=== PATIENT | male | born 1955 | race Caucasian/White ===

== ENCOUNTER 2016-11-07 16:39 | Inpatient (IN) | payer OTHER ==
[~2016-11-07] VITALS: Ht 177.8 cm; Wt 102.2 kg
[2016-11-07] MEDS ORDERED: SODIUM CHLORIDE 0.9% 1,000 ML IV ONE ×2 (16:50)
[2016-11-07] MEDS ORDERED: ETOMIDATE (2MG/ML) 20ML VIAL IV ONE (16:56)
[2016-11-07] MEDS ORDERED: SUCCINYLCHOLINE CHLORIDE 20 MG/ML 10ML VIAL IV ONE ×2 (16:56→17:07)
[2016-11-07] MEDS ORDERED: MIDAZOLAM DRIP 50 mg/50mL 50 ML IV ONE (16:59)
[2016-11-07] MEDS ORDERED: cefTRIAXone 1GM/50ML D5W 50 ML IV ONE (17:00)
[2016-11-07] MEDS: MIDAZOLAM DRIP 50 mg/50mL 50 ML IV SCH ×2 (17:16→23:43)
[2016-11-07] MEDS: PROPOFOL 100 ML IV SCH (17:24)
[2016-11-07] MEDS ORDERED: PROPOFOL 100 ML IV ONE (17:24)
[2016-11-07 17:31] LABS: CONDITION Y; DEFINITIVE SEE PRINTOUT; Hematocrit 47.2 % (41.0-53.0); Hemoglobin 16.5 g/dL (13.5-17.5); Mean Corpuscular Hemoglobin 34.4 pg (28.0-32.0); Mean Corpuscular Hgb Conc. 34.8 g/dL (32.0-36.0); Mean Corpuscular Volume 98.8 fL (80.0-100.0); Mean Platelet Volume 9.8 fL (7.4-10.4); SUSPECT SEE PRINTOUT
[2016-11-07 17:32] LABS: Platelet Count (auto) 212 10^3/uL (140-450)
[2016-11-07 17:37] LABS: Anion Gap 12 (5-15); BUN/Creatinine Ratio 28.5; Blood Urea Nitrogen 49 mg/dL (7-18); Calcium 9.2 mg/dL (8.5-10.1); Carbon Dioxide 19 mmol/L (21-32); Chloride 107 mmol/L (98-107); GFR African American 52 mL/min; GFR Non-African American 43 mL/min; Glucose 111 mg/dL (74-106); Potassium 3.7 mmol/L (3.5-5.1); Sodium 138 mmol/L (136-145)
[2016-11-07 17:41] LABS: INR 1.47 (0.9-1.15); Partial Thromboplastin Time 30.4 sec (22.64-33.71)
[2016-11-07 17:45] LABS: Alkaline Phosphatase 88 U/L (45-117); Aspartate Aminotransferase 31 U/L (15-37); Bilirubin, Total 2.2 mg/dL (0.2-1.0); Total Protein 8.3 g/dL (6.4-8.2)
[2016-11-07 17:46] LABS: B-Type Natriuretic Peptide 13.77 pg/mL (0-100); Temperature: 23.3 C (20.0-25.0)
[2016-11-07 17:49] LABS: Prothrombin Time 16.1 sec (9.37-12.3)
[2016-11-07 17:56] LABS: White Blood Cell 1.4 10^3/uL (4.4-10.8)
[2016-11-07 17:57] LABS: Giant Platelets Few; Metamyelocytes % 0; Myelocytes % 0; Platelet Estimate Adequate; Promyelocytes % 0; Reactive Lymphocytes 0
[2016-11-07] MEDS ORDERED: MORPHINE SULF INJ 2 MG/ML SYRINGE 1ML IV PRN ×2 (18:00→18:15)
[2016-11-07] MEDS ORDERED: AZITHROMYCIN 500MG/D5W 250ML 250 ML IV ONE (18:00)
[2016-11-07] MEDS ORDERED: PROPOFOL 100 ML IV SCH (18:00)
[2016-11-07] MEDS ORDERED: MIDAZOLAM DRIP 50 mg/50mL 50 ML IV SCH (18:00)
[2016-11-07] MEDS ORDERED: NITROGLYCERIN 0.4 MG SL TAB SL PRN (18:00)
[2016-11-07 18:06] LABS: Albumin 2.6 g/dL (3.4-5.0)
[2016-11-07 18:09] LABS: Allen Test Modified; Base Excess -7.7 mmol/L (-2.0-2.0); Blood 02Sat 90.8 % (96-100); Blood COHb 0.3 % (0.5-1.5); Blood MetHb 0.4 % (0.0-1.5); HCO3 20.6 mmol/L (22-26.0); HHb 9.1 % (0.0-5.0); MODE VENT - A/C; O2Hb 90.2 % (94.0-97.0); PCO2 51.9 mmHg (35.0-45.0); PCO2(T) 51.9 mmHg (35.0-45.0); PO2 77.3 mmHg (80.0-100.0); PO2(T) 77.3 mmHg (80.0-100.0); Sample Type Arterial; pH 7.216 (7.350-7.450)
[2016-11-07] MEDS ORDERED: TEMAZEPAM 15 MG CAP PO PRN (18:15)
[2016-11-07] MEDS ORDERED: HYDROcodone-ACET 5/325MG TAB PO PRN (18:15)
[2016-11-07] MEDS ORDERED: PIPERACILLIN-TAZOB 3.375GM 100 ML IV ONE (18:15)
[2016-11-07] MEDS ORDERED: SODIUM CHLORIDE 0.9% 1,000 ML IV SCH (18:15)
[2016-11-07] MEDS ORDERED: LORazepam 2MG/ML-1ML VIAL IV PRN (18:15)
[2016-11-07] MEDS ORDERED: ONDANSETRON HCL 4 MG/2 ML VIAL IV PRN (18:15)
[2016-11-07] MEDS ORDERED: LABETALOL HCL 5 MG/ML 4ML SYRINGE IV PRN (18:30)
[2016-11-07] MEDS ORDERED: PANTOPRAZOLE SODIUM 40 MG/10 ML VIAL IV ONE (18:30)
[2016-11-07 18:34] LABS: Urine Bilirubin Negative (Negative); Urine Color Yellow (Yellow); Urine Glucose TRACE mg/dL (Normal); Urine Ketone Negative (Negative); Urine Mucus FEW (None Seen); Urine Nitrite Negative (Negative); Urine RBC 2 /hpf (0 - 3); Urine Squamous Epithelial Cell FEW /hpf (<5); Urine Urobilinogen Normal (Negative)
[2016-11-07 18:36] LABS: Urine Blood 2+ /uL (Negative)
[2016-11-07] MEDS ORDERED: NOREPINEPHRINE BITARTRATE 250 ML IV ONE (18:56)
[2016-11-07 19:52] VITALS: BP 96/52
[2016-11-07] MEDS ORDERED: ENOXAPARIN SOD 30 MG/0.3 ML SYRINGE SC SCH (20:00)
[2016-11-07] MEDS: NOREPINEPHRINE BITARTRATE 250 ML IV SCH (20:06)
[2016-11-07] MEDS: LINEZOLID 600MG/300ML 300 ML IV SCH (20:20)
[2016-11-07] MEDS: methylPREDNISolone SOD SUCC 40 MG/ML VL IV SCH (20:51)
[2016-11-07] MEDS: fentaNYL Drip 2500mCg/250mlNS 250 ML IV SCH (21:43)
[2016-11-07 22:43] VITALS: BP 93/57
[2016-11-07 23:00] VITALS: BP 93/49
[2016-11-07] MEDS ORDERED: AZITHROMYCIN 500MG/D5W 250ML 250 ML IV SCH (23:00)
[2016-11-07 23:04] LABS: Allen Test Modified; Base Excess -7.7 mmol/L (-2.0-2.0); Blood 02Sat 94.2 % (96-100); Blood COHb 0.5 % (0.5-1.5); Blood MetHb 0.3 % (0.0-1.5); HCO3 19.2 mmol/L (22-26.0); HHb 5.8 % (0.0-5.0); MODE VENT - A/C; O2Hb 93.4 % (94.0-97.0); PO2 85.9 mmHg (80.0-100.0); PO2(T) 85.9 mmHg (80.0-100.0); Sample Type Arterial; pH 7.258 (7.350-7.450)
[2016-11-07] MEDS ORDERED: SODIUM CHLORIDE 0.9% 1,500 ML IV STA (23:04)
[2016-11-07 23:15] VITALS: BP 93/58
[2016-11-07 23:30] VITALS: BP 99/60
[2016-11-07 23:45] VITALS: BP 99/57
[2016-11-08] VITALS (107 sets, daily range): BP systolic 86–131; BP diastolic 43–74
[2016-11-08] MEDS: PIPERACILLIN-TAZOB 3.375GM 100 ML IV SCH ×4 (00:24→20:48)
[2016-11-08] MEDS: IPRATROPIUM BROM 0.5 MG/2.5ML INH SOL NEB SCH ×4 (01:00→18:21)
[2016-11-08] MEDS: ALBUTEROL SULF 2.5 MG/0.5ML(0.5%) NEB SOLN NEB SCH ×4 (01:00→18:21)
[2016-11-08 01:49] LABS: Allen Test Modified; Blood 02Sat 93.8 % (96-100); Blood COHb 0.6 % (0.5-1.5); Blood MetHb 0.2 % (0.0-1.5); HCO3 17.2 mmol/L (22-26.0); HHb 6.2 % (0.0-5.0); MODE VENT - A/C; PCO2 38.2 mmHg (35.0-45.0); PCO2(T) 38.2 mmHg (35.0-45.0); PO2 80.6 mmHg (80.0-100.0); PO2(T) 80.6 mmHg (80.0-100.0); Sample Type Arterial; pH 7.271 (7.350-7.450)
[2016-11-08 04:02] LABS: INR 1.45 (0.9-1.15); Partial Thromboplastin Time 35.9 sec (22.64-33.71)
[2016-11-08 04:11] LABS: Albumin 1.8 g/dL (3.4-5.0); Calcium 8.2 mg/dL (8.5-10.1); Potassium 4.4 mmol/L (3.5-5.1)
[2016-11-08 04:13] LABS: Bilirubin, Total 2.1 mg/dL (0.2-1.0); Total Protein 6.1 g/dL (6.4-8.2)
[2016-11-08 04:27] LABS: CONDITION Y; DEFINITIVE SEE PRINTOUT; Hematocrit 39.3 % (41.0-53.0); Hemoglobin 13.2 g/dL (13.5-17.5); Mean Corpuscular Hemoglobin 33.6 pg (28.0-32.0); Mean Corpuscular Hgb Conc. 33.5 g/dL (32.0-36.0); Mean Corpuscular Volume 100.2 fL (80.0-100.0); Mean Platelet Volume 9.6 fL (7.4-10.4); Platelet Count (auto) 183 10^3/uL (140-450); Red Cell Distribution Width 16.7 % (11.6-16.0); SUSPECT SEE PRINTOUT; White Blood Cell 2.5 10^3/uL (4.4-10.8)
[2016-11-08 04:34] LABS: Prothrombin Time 15.9 sec (9.37-12.3)
[2016-11-08 04:45] LABS: Myelocytes % 0; Promyelocytes % 0; Reactive Lymphocytes 0
[2016-11-08] MEDS: PROPOFOL 100 ML IV SCH ×5 (05:12→23:14)
[2016-11-08 05:34] LABS: Metamyelocytes % 2; Platelet Estimate Adequate
[2016-11-08 05:35] LABS: RBC Morphology Normal
[2016-11-08 06:43] LABS: Allen Test Yes; Base Excess -9.1 mmol/L (-2.0-2.0); Blood 02Sat 94.6 % (96-100); Blood COHb 0.5 % (0.5-1.5); Blood MetHb 0.3 % (0.0-1.5); HCO3 18.2 mmol/L (22-26.0); HHb 5.4 % (0.0-5.0); MODE VENT - A/C; O2Hb 93.8 % (94.0-97.0); PCO2 44.8 mmHg (35.0-45.0); PCO2(T) 44.8 mmHg (35.0-45.0); PO2 88.5 mmHg (80.0-100.0); PO2(T) 88.5 mmHg (80.0-100.0); Sample Type Arterial; pH 7.227 (7.350-7.450)
[2016-11-08] MEDS: methylPREDNISolone SOD SUCC 40 MG/ML VL IV SCH (07:38)
[2016-11-08] MEDS: LINEZOLID 600MG/300ML 300 ML IV SCH ×2 (07:38→20:48)
[2016-11-08] MEDS: PANTOPRAZOLE SODIUM 40 MG/10 ML VIAL IV SCH (09:36)
[2016-11-08] MEDS: ALBUMIN 25% 50 ML IV SCH ×2 (13:08→21:52)
[2016-11-08] MEDS: SODIUM BICARBONATE 50ML VIAL 50 ML in SOD CHL 0.45% 1,000 ML IV SCH (13:46)
[2016-11-08] MEDS ORDERED: IBUP800T24 PO (14:00)
[2016-11-08] MEDS ORDERED: POM (14:02)
[2016-11-08] MEDS ORDERED: POTA-165 PO (14:09)
[2016-11-08] MEDS ORDERED: BENA40TA7 PO (14:10)
[2016-11-08] MEDS ORDERED: AML5T PO (14:13)
[2016-11-08] MEDS ORDERED: ASPI325T4 PO (14:17)
[2016-11-08] MEDS ORDERED: DOCU-94 PO (14:17)
[2016-11-08] MEDS ORDERED: METH-562 PO (14:17)
[2016-11-08] MEDS ORDERED: MULT-228 PO (14:17)
[2016-11-08] MEDS ORDERED: BENZ100C97 PO (14:18)
[2016-11-08] MEDS: NOREPINEPHRINE BITARTRATE 250 ML IV SCH (15:45)
[2016-11-08 16:20] LABS: Allen Test Yes; Base Excess -8.1 mmol/L (-2.0-2.0); Blood COHb 0.2 % (0.5-1.5); Blood MetHb 0.2 % (0.0-1.5); HCO3 18.2 mmol/L (22-26.0); MODE VENT - A/C; O2Hb 96.6 % (94.0-97.0); PCO2 40.4 mmHg (35.0-45.0); PCO2(T) 40.4 mmHg (35.0-45.0); PO2 106.3 mmHg (80.0-100.0); PO2(T) 106.3 mmHg (80.0-100.0); Sample Type Arterial; pH 7.272 (7.350-7.450)
[2016-11-08] MEDS ORDERED: SODIUM CHLORIDE 0.9% 1,000 ML IV SCH (18:15)
[2016-11-08 21:08] LABS: Allen Test Modified; Base Excess -9.2 mmol/L (-2.0-2.0); Blood 02Sat 94.7 % (96-100); Blood COHb 0.4 % (0.5-1.5); Blood MetHb 0.3 % (0.0-1.5); HCO3 16.1 mmol/L (22-26.0); HHb 5.3 % (0.0-5.0); MODE VENT - PCV; PCO2 33.2 mmHg (35.0-45.0); PCO2(T) 33.2 mmHg (35.0-45.0); PIP 33; PO2 80.1 mmHg (80.0-100.0); PO2(T) 80.1 mmHg (80.0-100.0); Sample Type Arterial; Spont Vt 993; pH 7.304 (7.350-7.450)
[2016-11-08] MEDS: fentaNYL Drip 2500mCg/250mlNS 250 ML IV SCH (21:24)
[2016-11-09] VITALS (101 sets, daily range): BP systolic 93–126; BP diastolic 49–73
[2016-11-09] MEDS: IPRATROPIUM BROM 0.5 MG/2.5ML INH SOL NEB SCH ×4 (00:04→18:14)
[2016-11-09] MEDS: ALBUTEROL SULF 2.5 MG/0.5ML(0.5%) NEB SOLN NEB SCH ×4 (00:04→18:14)
[2016-11-09 00:43] LABS: Allen Test Modified; Base Excess -7.2 mmol/L (-2.0-2.0); Blood 02Sat 95.3 % (96-100); Blood COHb 0.7 % (0.5-1.5); Blood MetHb 0.2 % (0.0-1.5); HHb 4.7 % (0.0-5.0); MODE VENT - PCV; O2Hb 94.4 % (94.0-97.0); PCO2 35.8 mmHg (35.0-45.0); PCO2(T) 35.8 mmHg (35.0-45.0); PO2 85.2 mmHg (80.0-100.0); PO2(T) 85.2 mmHg (80.0-100.0); Sample Type Arterial
[2016-11-09] MEDS: SODIUM BICARBONATE 50ML VIAL 50 ML in SOD CHL 0.45% 1,000 ML IV SCH ×3 (01:42→20:15)
[2016-11-09] MEDS: PROPOFOL 100 ML IV SCH (02:28)
[2016-11-09 03:42] LABS: CONDITION Y; Hematocrit 35.5 % (41.0-53.0); Hemoglobin 12.1 g/dL (13.5-17.5); Mean Corpuscular Hemoglobin 33.8 pg (28.0-32.0); Mean Corpuscular Hgb Conc. 34.2 g/dL (32.0-36.0); Mean Corpuscular Volume 99.1 fL (80.0-100.0); Mean Platelet Volume 9.9 fL (7.4-10.4); Platelet Count (auto) 195 10^3/uL (140-450); Red Cell Distribution Width 17.4 % (11.6-16.0); White Blood Cell 3.3 10^3/uL (4.4-10.8)
[2016-11-09 03:59] LABS: INR 1.21 (0.9-1.15); Partial Thromboplastin Time 32.6 sec (22.64-33.71)
[2016-11-09] MEDS: PIPERACILLIN-TAZOB 3.375GM 100 ML IV SCH ×3 (04:00→20:00)
[2016-11-09 04:17] LABS: BUN/Creatinine Ratio 18.9; Magnesium 2.7 mg/dL (1.6-2.6); Phosphorus 4.1 mg/dL (2.5-4.90); Potassium 3.9 mmol/L (3.5-5.1); Total Protein 6.1 g/dL (6.4-8.2); Uric Acid 8.2 mg/dL (3.5-7.2)
[2016-11-09 04:22] LABS: Myelocytes % 0; Promyelocytes % 0; Reactive Lymphocytes 0
[2016-11-09 04:23] LABS: Prothrombin Time 13.2 sec (9.37-12.3)
[2016-11-09 05:48] LABS: Metamyelocytes % 1
[2016-11-09 05:49] LABS: Platelet Estimate Adequate; RBC Morphology Normal
[2016-11-09] MEDS: ALBUMIN 25% 50 ML IV SCH ×3 (06:00→22:10)
[2016-11-09 08:16] LABS: Allen Test Yes; Base Excess -6.5 mmol/L (-2.0-2.0); Blood 02Sat 95.5 % (96-100); Blood COHb 0.1 % (0.5-1.5); Blood MetHb 0.3 % (0.0-1.5); HCO3 18.5 mmol/L (22-26.0); HHb 4.5 % (0.0-5.0); MODE VENT - PCV; O2Hb 95.1 % (94.0-97.0); PCO2 35.2 mmHg (35.0-45.0); PCO2(T) 35.2 mmHg (35.0-45.0); PIP 27; PO2 89.2 mmHg (80.0-100.0); PO2(T) 89.2 mmHg (80.0-100.0); Sample Type Arterial; pH 7.339 (7.350-7.450)
[2016-11-09] MEDS: LINEZOLID 600MG/300ML 300 ML IV SCH ×2 (09:00→20:20)
[2016-11-09] MEDS: PANTOPRAZOLE SODIUM 40 MG/10 ML VIAL IV SCH (12:00)
[2016-11-09] MEDS: MIDAZOLAM DRIP 50 mg/50mL 50 ML IV SCH (17:58)
[2016-11-09] MEDS: NOREPINEPHRINE BITARTRATE 250 ML IV SCH (19:00)
[2016-11-09] MEDS: fentaNYL Drip 2500mCg/250mlNS 250 ML IV SCH (21:41)
[2016-11-10] VITALS (101 sets, daily range): BP systolic 104–147; BP diastolic 54–78
[2016-11-10] MEDS: IPRATROPIUM BROM 0.5 MG/2.5ML INH SOL NEB SCH ×4 (00:04→18:24)
[2016-11-10] MEDS: ALBUTEROL SULF 2.5 MG/0.5ML(0.5%) NEB SOLN NEB SCH ×4 (00:04→18:25)
[2016-11-10] MEDS: PIPERACILLIN-TAZOB 3.375GM 100 ML IV SCH ×3 (04:00→20:10)
[2016-11-10] MEDS: ALBUMIN 25% 50 ML IV SCH ×3 (05:29→22:00)
[2016-11-10 08:04] LABS: Allen Test Yes; Base Excess -5.6 mmol/L (-2.0-2.0); Blood 02Sat 92.3 % (96-100); Blood COHb 0.5 % (0.5-1.5); Blood MetHb 0.4 % (0.0-1.5); HCO3 19.3 mmol/L (22-26.0); HHb 7.6 % (0.0-5.0); MODE VENT - PCV; O2Hb 91.5 % (94.0-97.0); PCO2 35.9 mmHg (35.0-45.0); PCO2(T) 35.9 mmHg (35.0-45.0); PIP 27; PO2 74.5 mmHg (80.0-100.0); PO2(T) 74.5 mmHg (80.0-100.0); Sample Type Arterial; pH 7.349 (7.350-7.450)
[2016-11-10] MEDS: LINEZOLID 600MG/300ML 300 ML IV SCH ×2 (08:23→20:10)
[2016-11-10 08:34] LABS: Basophils # (auto) 0 uL; CONDITION Y; Eosinophils # (auto) 0.1 uL; Eosinophils % (auto) 2.7 % (0.0-7.0); Hematocrit 32.6 % (41.0-53.0); Hemoglobin 11.4 g/dL (13.5-17.5); Lymphocytes # (auto) 0.2 uL; Lymphocytes % (auto) 6.5 % (10.0-50.0); Mean Corpuscular Hemoglobin 33.8 pg (28.0-32.0); Mean Corpuscular Hgb Conc. 34.9 g/dL (32.0-36.0); Mean Platelet Volume 9.8 fL (7.4-10.4); Monocytes # (auto) 0.2 uL; Monocytes % (auto) 5.4 % (0.0-12.0); Neutrophils # (auto) 3.2 uL; Neutrophils % (auto) 85.4 % (37.0-80.0); Platelet Count (auto) 177 10^3/uL (140-450); Red Cell Distribution Width 17.2 % (11.6-16.0); White Blood Cell 3.8 10^3/uL (4.4-10.8)
[2016-11-10 08:41] LABS: Albumin 2.3 g/dL (3.4-5.0); Calcium 7.2 mg/dL (8.5-10.1); Magnesium 2.7 mg/dL (1.6-2.6); Potassium 3.7 mmol/L (3.5-5.1)
[2016-11-10 08:44] LABS: BUN/Creatinine Ratio 18.2
[2016-11-10 08:46] LABS: Bilirubin, Total 3.2 mg/dL (0.2-1.0); Total Protein 5.7 g/dL (6.4-8.2)
[2016-11-10] MEDS: PROPOFOL 100 ML IV SCH ×4 (09:28→20:10)
[2016-11-10] MEDS: PANTOPRAZOLE SODIUM 40 MG/10 ML VIAL IV SCH (09:29)
[2016-11-10] MEDS: fentaNYL Drip 2500mCg/250mlNS 250 ML IV SCH (15:31)
[2016-11-10] MEDS: SODIUM BICARBONATE 50ML VIAL 50 ML in SOD CHL 0.45% 1,000 ML IV SCH (15:31)
[2016-11-11] VITALS (103 sets, daily range): BP systolic 116–148; BP diastolic 55–78
[2016-11-11] MEDS: IPRATROPIUM BROM 0.5 MG/2.5ML INH SOL NEB SCH ×4 (00:16→18:05)
[2016-11-11] MEDS: ALBUTEROL SULF 2.5 MG/0.5ML(0.5%) NEB SOLN NEB SCH ×4 (00:16→18:05)
[2016-11-11] MEDS: PROPOFOL 100 ML IV SCH ×8 (01:24→23:19)
[2016-11-11] MEDS: PIPERACILLIN-TAZOB 3.375GM 100 ML IV SCH ×3 (03:50→20:00)
[2016-11-11 04:14] LABS: Basophils # (auto) 0 uL; CONDITION Y; Calcium 7.3 mg/dL (8.5-10.1); Eosinophils # (auto) 0.1 uL; Eosinophils % (auto) 1.2 % (0.0-7.0); Hematocrit 32.8 % (41.0-53.0); Hemoglobin 11.6 g/dL (13.5-17.5); Lymphocytes # (auto) 0.1 uL; Lymphocytes % (auto) 1.7 % (10.0-50.0); Mean Corpuscular Hemoglobin 34.1 pg (28.0-32.0); Mean Corpuscular Hgb Conc. 35.3 g/dL (32.0-36.0); Mean Corpuscular Volume 96.7 fL (80.0-100.0); Mean Platelet Volume 9.7 fL (7.4-10.4); Monocytes # (auto) 0.3 uL; Monocytes % (auto) 5.8 % (0.0-12.0); Neutrophils # (auto) 4.3 uL; Neutrophils % (auto) 91.3 % (37.0-80.0); Platelet Count (auto) 170 10^3/uL (140-450); Potassium 3.7 mmol/L (3.5-5.1); White Blood Cell 4.7 10^3/uL (4.4-10.8)
[2016-11-11 04:18] LABS: BUN/Creatinine Ratio 18.9
[2016-11-11 07:37] LABS: Allen Test Modified; Base Excess -6.3 mmol/L (-2.0-2.0); Blood 02Sat 93.7 % (96-100); Blood COHb 0.4 % (0.5-1.5); Blood MetHb 0.5 % (0.0-1.5); HCO3 17.7 mmol/L (22-26.0); HHb 6.2 % (0.0-5.0); MODE VENT - PCV; O2Hb 92.9 % (94.0-97.0); PCO2 30.4 mmHg (35.0-45.0); PCO2(T) 30.4 mmHg (35.0-45.0); PIP 27; PO2 82.1 mmHg (80.0-100.0); PO2(T) 82.1 mmHg (80.0-100.0); Pressure Support 32; Sample Type Arterial; pH 7.382 (7.350-7.450)
[2016-11-11] MEDS: SODIUM BICARBONATE 50ML VIAL 50 ML in SOD CHL 0.45% 1,000 ML IV SCH ×3 (08:37→12:08)
[2016-11-11] MEDS: NOREPINEPHRINE BITARTRATE 250 ML IV SCH ×2 (08:38→19:00)
[2016-11-11] MEDS: ALBUMIN 25% 50 ML IV SCH ×3 (08:48→22:24)
[2016-11-11] MEDS: LINEZOLID 600MG/300ML 300 ML IV SCH ×2 (08:48→20:47)
[2016-11-11] MEDS: PANTOPRAZOLE SODIUM 40 MG/10 ML VIAL IV SCH (10:23)
[2016-11-11] MEDS ORDERED: FUROSEMIDE 40 MG/4 ML VIAL IV ONE ×2 (11:45→18:45)
[2016-11-11] MEDS ORDERED: Suplena 8 ounce GT SCH (16:00)
[2016-11-11] MEDS: fentaNYL Drip 2500mCg/250mlNS 250 ML IV SCH (16:14)
[2016-11-11] MEDS ORDERED: AZITTAB6 PO (17:32)
[2016-11-11 18:23] LABS: BUN/Creatinine Ratio 18.2; Calcium 7.2 mg/dL (8.5-10.1); Potassium 3.6 mmol/L (3.5-5.1)
[2016-11-12] VITALS (106 sets, daily range): BP systolic 110–195; BP diastolic 52–98
[2016-11-12] MEDS: IPRATROPIUM BROM 0.5 MG/2.5ML INH SOL NEB SCH ×4 (00:06→18:14)
[2016-11-12] MEDS: ALBUTEROL SULF 2.5 MG/0.5ML(0.5%) NEB SOLN NEB SCH ×4 (00:06→18:14)
[2016-11-12] MEDS: SODIUM BICARBONATE 50ML VIAL 50 ML in SOD CHL 0.45% 1,000 ML IV SCH ×2 (01:00→12:45)
[2016-11-12] MEDS: PROPOFOL 100 ML IV SCH ×6 (02:04→22:11)
[2016-11-12] MEDS: PIPERACILLIN-TAZOB 3.375GM 100 ML IV SCH ×3 (04:00→20:01)
[2016-11-12 05:38] LABS: CONDITION Y; Hematocrit 34.5 % (41.0-53.0); Hemoglobin 12.1 g/dL (13.5-17.5); Mean Corpuscular Hemoglobin 33.6 pg (28.0-32.0); Mean Corpuscular Hgb Conc. 34.9 g/dL (32.0-36.0); Mean Corpuscular Volume 96.2 fL (80.0-100.0); Mean Platelet Volume 9.7 fL (7.4-10.4); Platelet Count (auto) 225 10^3/uL (140-450)
[2016-11-12 05:45] LABS: Base Excess -4.6 mmol/L (-2.0-2.0); Blood 02Sat 91.4 % (96-100); Blood COHb 0.6 % (0.5-1.5); Blood MetHb 0.4 % (0.0-1.5); HCO3 19.2 mmol/L (22-26.0); HHb 8.5 % (0.0-5.0); MODE VENT - A/C; O2Hb 90.5 % (94.0-97.0); PCO2 31.5 mmHg (35.0-45.0); PCO2(T) 31.5 mmHg (35.0-45.0); PO2 72.3 mmHg (80.0-100.0); PO2(T) 72.3 mmHg (80.0-100.0); Sample Type Arterial; pH 7.402 (7.350-7.450)
[2016-11-12 05:51] LABS: Albumin 2.7 g/dL (3.4-5.0)
[2016-11-12 05:58] LABS: BUN/Creatinine Ratio 19.1; Bilirubin, Total 5.3 mg/dL (0.2-1.0); Calcium 7.8 mg/dL (8.5-10.1); Total Protein 6.7 g/dL (6.4-8.2)
[2016-11-12 06:07] LABS: Potassium 3.5 mmol/L (3.5-5.1)
[2016-11-12 06:14] LABS: Metamyelocytes % 0; Myelocytes % 0; Promyelocytes % 0; Reactive Lymphocytes 0
[2016-11-12] MEDS: ALBUMIN 25% 50 ML IV SCH (06:30)
[2016-11-12 06:59] LABS: Platelet Estimate Adequate
[2016-11-12 07:00] LABS: Anisocytosis Slight
[2016-11-12] MEDS: LINEZOLID 600MG/300ML 300 ML IV SCH (08:31)
[2016-11-12] MEDS: ACETAMINOPHEN 500 MG TAB PO PRN ×2 (08:31→21:34)
[2016-11-12] MEDS: PANTOPRAZOLE SODIUM 40 MG/10 ML VIAL IV SCH (09:27)
[2016-11-12] MEDS ORDERED: LABETALOL HCL 5 MG/ML ML 20ML VIAL IV PRN (10:45)
[2016-11-12] MEDS ORDERED: METOPROLOL TARTRATE 25 MG TAB PO ONE (10:45)
[2016-11-12] MEDS ORDERED: ENOXAPARIN SOD 30 MG/0.3 ML SYRINGE SC ONE (10:45)
[2016-11-12 14:24] LABS: Hepatitis B Surface Antibody Negative
[2016-11-12] MEDS: fentaNYL Drip 2500mCg/250mlNS 250 ML IV SCH (21:24)
[2016-11-12] MEDS: METOPROLOL TARTRATE 25 MG TAB PO SCH (21:35)
[2016-11-13] VITALS (100 sets, daily range): BP systolic 100–216; BP diastolic 46–138
[2016-11-13] MEDS: ALBUTEROL SULF 2.5 MG/0.5ML(0.5%) NEB SOLN NEB SCH ×4 (00:08→19:55)
[2016-11-13] MEDS: IPRATROPIUM BROM 0.5 MG/2.5ML INH SOL NEB SCH ×4 (00:08→19:55)
[2016-11-13] MEDS: SODIUM BICARBONATE 50ML VIAL 50 ML in SOD CHL 0.45% 1,000 ML IV SCH ×2 (02:07→11:42)
[2016-11-13] MEDS: PROPOFOL 100 ML IV SCH ×6 (02:08→21:17)
[2016-11-13] MEDS: PIPERACILLIN-TAZOB 3.375GM 100 ML IV SCH ×3 (04:00→20:28)
[2016-11-13] MEDS: fentaNYL Drip 2500mCg/250mlNS 250 ML IV SCH (05:12)
[2016-11-13 05:26] LABS: Basophils # (auto) 0 uL; CONDITION Y; Eosinophils # (auto) 0.2 uL; Eosinophils % (auto) 3.1 % (0.0-7.0); Hematocrit 32.1 % (41.0-53.0); Hemoglobin 11.2 g/dL (13.5-17.5); Lymphocytes # (auto) 0.6 uL; Lymphocytes % (auto) 9.8 % (10.0-50.0); Mean Corpuscular Hemoglobin 33.7 pg (28.0-32.0); Mean Corpuscular Hgb Conc. 34.9 g/dL (32.0-36.0); Mean Corpuscular Volume 96.6 fL (80.0-100.0); Mean Platelet Volume 9.4 fL (7.4-10.4); Monocytes # (auto) 0.3 uL; Monocytes % (auto) 4.7 % (0.0-12.0); Neutrophils # (auto) 5.1 uL; Neutrophils % (auto) 82.4 % (37.0-80.0); Platelet Count (auto) 233 10^3/uL (140-450); Red Cell Distribution Width 17.3 % (11.6-16.0); SUSPECT SEE PRINTOUT; White Blood Cell 6.2 10^3/uL (4.4-10.8)
[2016-11-13 05:31] LABS: BUN/Creatinine Ratio 19.6; Calcium 7.8 mg/dL (8.5-10.1)
[2016-11-13 07:02] LABS: Potassium 3.4 mmol/L (3.5-5.1)
[2016-11-13 07:59] LABS: Allen Test Yes; Base Excess -3.1 mmol/L (-2.0-2.0); Blood 02Sat 92.6 % (96-100); Blood MetHb 0.2 % (0.0-1.5); HCO3 22.4 mmol/L (22-26.0); HHb 7.3 % (0.0-5.0); MODE VENT - A/C; O2Hb 91.5 % (94.0-97.0); PO2 75.8 mmHg (80.0-100.0); PO2(T) 75.8 mmHg (80.0-100.0); Sample Type Arterial; pH 7.345 (7.350-7.450)
[2016-11-13] MEDS: ENOXAPARIN SOD 30 MG/0.3 ML SYRINGE SC SCH (10:02)
[2016-11-13] MEDS: METOPROLOL TARTRATE 25 MG TAB PO SCH ×2 (10:02→21:45)
[2016-11-13] MEDS: PANTOPRAZOLE SODIUM 40 MG/10 ML VIAL IV SCH (10:02)
[2016-11-13] MEDS ORDERED: LABETALOL HCL 5 MG/ML ML 20ML VIAL IV PRN (12:00)
[2016-11-13] MEDS: FREE WATER GT SCH ×2 (12:00→18:00)
[2016-11-13] MEDS: ACETAMINOPHEN 500 MG TAB PO PRN (14:14)
[2016-11-13] MEDS: LACTULOSE 20Gm/30ML SOLN PO SCH ×2 (14:14→18:00)
[2016-11-13] MEDS ORDERED: ACETAMINOPHEN 650 mg PER 20 mL UD GT PRN (14:15)
[2016-11-13] MEDS ORDERED: ACETAMINOPHEN 650 mg PER 20 mL UD ONE (14:18)
[2016-11-14] VITALS (97 sets, daily range): BP systolic 101–160; BP diastolic 48–87
[2016-11-14] MEDS: IPRATROPIUM BROM 0.5 MG/2.5ML INH SOL NEB SCH ×4 (00:07→18:25)
[2016-11-14] MEDS: ALBUTEROL SULF 2.5 MG/0.5ML(0.5%) NEB SOLN NEB SCH ×4 (00:07→18:25)
[2016-11-14] MEDS: PROPOFOL 100 ML IV SCH ×5 (00:23→22:33)
[2016-11-14] MEDS: FREE WATER GT SCH ×4 (00:24→18:11)
[2016-11-14] MEDS: fentaNYL Drip 2500mCg/250mlNS 250 ML IV SCH ×2 (00:25→14:32)
[2016-11-14] MEDS: LACTULOSE 20Gm/30ML SOLN PO SCH ×4 (00:26→18:11)
[2016-11-14] MEDS: PIPERACILLIN-TAZOB 3.375GM 100 ML IV SCH ×3 (04:02→19:31)
[2016-11-14 04:45] LABS: CONDITION Y; Hematocrit 31.6 % (41.0-53.0); Hemoglobin 10.9 g/dL (13.5-17.5); Mean Corpuscular Hemoglobin 33.3 pg (28.0-32.0); Mean Corpuscular Hgb Conc. 34.5 g/dL (32.0-36.0); Mean Corpuscular Volume 96.5 fL (80.0-100.0); Mean Platelet Volume 9.2 fL (7.4-10.4); Platelet Count (auto) 267 10^3/uL (140-450); Red Cell Distribution Width 17.2 % (11.6-16.0); White Blood Cell 6.3 10^3/uL (4.4-10.8)
[2016-11-14 04:49] LABS: Metamyelocytes % 0; Myelocytes % 0; Promyelocytes % 0; Reactive Lymphocytes 0
[2016-11-14 06:22] LABS: Potassium 3.4 mmol/L (3.5-5.1)
[2016-11-14 06:24] LABS: BUN/Creatinine Ratio 21.5; Bilirubin, Total 4.9 mg/dL (0.2-1.0); Calcium 7.9 mg/dL (8.5-10.1); Total Protein 6.2 g/dL (6.4-8.2)
[2016-11-14 08:03] LABS: Base Excess -1.2 mmol/L (-2.0-2.0); Blood 02Sat 92.4 % (96-100); Blood COHb 0.6 % (0.5-1.5); Blood MetHb 0.4 % (0.0-1.5); HCO3 24.4 mmol/L (22-26.0); HHb 7.5 % (0.0-5.0); MODE VENT - A/C; O2Hb 91.5 % (94.0-97.0); PCO2 44.5 mmHg (35.0-45.0); PCO2(T) 44.5 mmHg (35.0-45.0); PO2 77.3 mmHg (80.0-100.0); PO2(T) 77.3 mmHg (80.0-100.0); Sample Type Arterial; pH 7.357 (7.350-7.450)
[2016-11-14 09:16] LABS: Platelet Estimate Adequate
[2016-11-14] MEDS: PANTOPRAZOLE SODIUM 40 MG/10 ML VIAL IV SCH (09:39)
[2016-11-14] MEDS: ENOXAPARIN SOD 30 MG/0.3 ML SYRINGE SC SCH (09:39)
[2016-11-14] MEDS: METOPROLOL TARTRATE 25 MG TAB PO SCH ×2 (09:40→21:36)
[2016-11-14 19:21] LABS: BUN/Creatinine Ratio 22.6; Calcium 8.5 mg/dL (8.5-10.1); Potassium 3.5 mmol/L (3.5-5.1)
== END 2016-11-14 23:01 | disposition short-term general hospital (02) | DRG 870 ==
LOC: ER 16:39 → TELE 16:40 → ICU WEST 22:35
PROVIDERS: ADMIT Nurse Practitioner Family; ATTEND Internal Medicine
PROC: 5A1955Z Respiratory Ventilation, Greater than 96 Consecutive Hours (ICD-10-PCS; principal; 2016-11-07)
PROC: 0BH17EZ Insertion of Endotracheal Airway into Trachea, Via Natural or Artificial Opening (ICD-10-PCS; 2016-11-07)
PROC: 5A09357 Assistance with Respiratory Ventilation, Less than 24 Consecutive Hours, Continuous Positive Airway Pressure (ICD-10-PCS; 2016-11-07)
PROC: 02H633Z Insertion of Infusion Device into Right Atrium, Percutaneous Approach (ICD-10-PCS; 2016-11-08)
DX: A41.3 Sepsis due to Hemophilus influenzae (principal); J96.01 Acute respiratory failure with hypoxia; R65.21 Severe sepsis with septic shock; N17.0 Acute kidney failure with tubular necrosis; E43 Unspecified severe protein-calorie malnutrition; J14 Pneumonia due to Hemophilus influenzae; J96.02 Acute respiratory failure with hypercapnia; C90.00 Multiple myeloma not having achieved remission; I12.9 Hypertensive chronic kidney disease with stage 1 through stage 4 chronic kidney disease, or unspecified chronic kidney disease; N18.9 Chronic kidney disease, unspecified; K59.00 Constipation, unspecified; F41.9 Anxiety disorder, unspecified; G47.00 Insomnia, unspecified; R74.8 Abnormal levels of other serum enzymes; I13.10 Hypertensive heart and chronic kidney disease without heart failure, with stage 1 through stage 4 chronic kidney disease, or unspecified chronic kidney disease; Z92.21 Personal history of antineoplastic chemotherapy; Z68.32 Body mass index [BMI] 32.0-32.9, adult
CPT/HCPCS: 31500; 36415; 36600; 51702; 71010; 80048; 80053; 81001; 82805; 83605; 83735; 83880; 84100; 84484; 84550; 85007; 85025; 85027; 85610; 85730; 86706; 86803; 87040; 87070; 87077; 87081; 87086; 87205; 87340; 93005; 93306; 94002; 94003; 94640; 94660; 96361; 96374; 96375; 99291; C9113; J0330; J0696; J2250; J2543; J2704; J3010